=== PATIENT | female | born 1970 | race Caucasian/White ===

== ENCOUNTER 2018-07-08 11:38 | Emergency (ER) | payer OTHER ==
[~2018-07-08] VITALS: Ht 175.2 cm; Wt 90.7 kg
[~2018-07-08 11:38] MED LIST: ANAPROX DS550 MG PO; CELEXA40 MG PO; CIPROFLOXACIN500 MG PO; IBU-6600 MG PO; MOTRIN,RUFEN800 MG PO; NKHM; PERCOCET 325 MG1 TA2 PO; PERCOCET 325 MG1 TA6 PO; PRENATAL VITAMI1 TAB PO; PRENATAL1 TA3 PO; ROBAXIN750 MG PO; VICODIN1 TAB PO; VITAMIN D50000 IU PO
[2018-07-08] MEDS ORDERED: DIFLUCAN150 MG PO (13:42)
[2018-07-08] MEDS ORDERED: LEVOFLOXACIN500 MG PO (13:42)
== END 2018-07-08 15:05 | disposition home or self-care (01) ==
LOC: ED 11:38
DX: J32.9 Chronic sinusitis, unspecified (principal); J40 Bronchitis, not specified as acute or chronic; F17.200 Nicotine dependence, unspecified, uncomplicated; Z79.899 Other long term (current) drug therapy

== ENCOUNTER → 2020-03-23 | Outpatient (CLI) | payer OTHER ==
[~2020-03-23] MED LIST changes: +DIFLUCAN150 MG PO; +LEVOFLOXACIN500 MG PO
== END | disposition home or self-care (01) ==
LOC: COVID19 00:41
DX: Z20.828 Contact with and (suspected) exposure to other viral communicable diseases (principal)

== ENCOUNTER 2021-02-08 06:42 | Emergency (ER) | payer OTHER ==
[~2021-02-08] VITALS: Ht 172.7 cm; Wt 95.7 kg
[2021-02-08] MEDS ORDERED: PREDNISONE50 MG PO (08:21)
== END 2021-02-08 08:38 | disposition home or self-care (01) ==
LOC: ED 06:42
DX: T78.40XA Allergy, unspecified, initial encounter (principal); Z79.899 Other long term (current) drug therapy; Z98.890 Other specified postprocedural states; X58.XXXA Exposure to other specified factors, initial encounter

== ENCOUNTER 2022-02-23 06:12 | Emergency (ER) | payer OTHER ==
[~2022-02-23] VITALS: Ht 170.1 cm; Wt 104.3 kg
[~2022-02-23 06:12] MED LIST changes: +PREDNISONE50 MG PO
[2022-02-23] MEDS ORDERED: METHOCARBAMOL500 M1 PO (07:23)
[2022-02-23] MEDS ORDERED: NAPROXEN250 MG PO (07:23)
== END 2022-02-23 07:32 | disposition home or self-care (01) ==
LOC: ED 06:12
DX: R07.89 Other chest pain (principal)

== ENCOUNTER 2023-03-22 21:39 | Emergency (ER) | payer OTHER ==
[~2023-03-22] VITALS: Ht 170.1 cm; Wt 86.2 kg
[~2023-03-22 21:39] MED LIST changes: +METHOCARBAMOL500 M1 PO; +NAPROXEN250 MG PO
[2023-03-22] MEDS ORDERED: EFFEXOR XR75 M1 PO (21:53)
[2023-03-22 22:32] LABS: BASO # 0.1 10*3/uL (0.0-0.1); BASO % 0.4 % (0.0-1.0); EOS # 0.1 10*3/uL (0.0-0.4); EOS % 0.7 % (1.0-4.0); HEMATOCRIT 50.3 % (37.0-47.0); LYMPH # 4.7 10*3/uL (1.3-4.4); LYMPH % 31.5 % (27.0-41.0); MEAN CELL VOLUME 87.3 fl (81.0-99.0); MEAN CORPUSCULAR HGB CONC 33.2 g/dl (33.0-37.0); MEAN PLATELET VOLUME 9.4 fl (9.6-12.3); MONO % 6.7 % (3.0-9.0); NEUT # 8.9 10*3/uL (2.3-7.9); NEUT % 60.2 % (47.0-73.0); PLATELET COUNT AUTOMATED 368 10*3/uL (130-400); RED BLOOD COUNT 5.76 10*6/uL (4.10-5.10); RED CELL DISTRI WIDTH 13.3 % (0-14.5); WHITE BLOOD COUNT 14.8 10*3/uL (4.8-10.8)
[2023-03-22 22:51] LABS: ACT PARTIAL THROMBO TIME 29.2 SECONDS (20.0-32.1)
[2023-03-22 22:53] LABS: ALKALINE PHOSPHATASE 115 U/L (46-116); BUN 10 mg/dl (9-23); CHLORIDE 104 mmol/L (98-107); CPK 72 U/L (34-171); LIPASE 29 U/L (12-53); POTASSIUM 3.4 mmol/L (3.4-5.1); SGPT/ALT 12 U/L (10-49); TOTAL PROTEIN 8.1 gm/dL (6.0-8.0)
[2023-03-22 22:54] LABS: ETHYL ALCOHOL < 3.0 mg/dl (<3)
[2023-03-23 01:02] LABS: BILIRUBIN Negative (Negative); BLOOD Negative (Negative); CLARITY Clear (Clear); COLOR Yellow (Yellow); GLUCOSE Negative (Negative); KETONE Trace (Negative); LEUKO ESTERASE Negative (Negative); NITRITE Negative (Negative); SPECIFIC GRAVITY 1.025 (1.001-1.030)
[2023-03-23 01:09] LABS: URINE AMPHETAMINES Negative (1000ng/ml); URINE BARBITURATES Negative (200ng/ml); URINE BENZODIAZEPINES Negative (200ng/ml); URINE CANNABINOIDS (THC) Positive (50ng/ml); URINE COCAINE Negative (300ng/ml); URINE METHADONE Negative (300ng/ml); URINE OPIATES Negative (300ng/ml); URINE PHENCYCLIDINE Negative (25ng/ml)
[2023-03-23 01:30] LABS: BACTERIA 1+; HYALINE CAST 0-2; RBC 0-2 rbc/hpf (0-2); WBC 0-2 wbc/hpf (0-5)
[2023-03-23 01:31] LABS: MUCOUS 2+
== END 2023-03-23 11:02 | disposition home or self-care (01) ==
LOC: ED 21:39
PROVIDERS: Internal Medicine
DX: F43.10 Post-traumatic stress disorder, unspecified (principal); F32.A Depression, unspecified; F41.9 Anxiety disorder, unspecified; Z98.890 Other specified postprocedural states; X58.XXXA Exposure to other specified factors, initial encounter; Y93.89 Activity, other specified; Y92.89 Other specified places as the place of occurrence of the external cause; Y99.8 Other external cause status

== ENCOUNTER → 2023-09-04 | Outpatient (CLI) | payer OTHER ==
[~2023-09-04] MED LIST changes: +BUSPIRONE10 MG PO; +CLEOCIN HCL150 MG PO; +CLINDAMYCIN HC300 MG PO; +DALVANCE500 MG IV; +EFFEXOR XR75 M1 PO; +LAMICTAL100 MG PO; +LEVOFLOXACIN750 M2 PO; +VENLAFAXINE HYD75 M3 PO; +Vibra-Tab100 MG PO
== END | disposition home or self-care (01) ==
LOC: WOUNDCARE 01:40
PROVIDERS: ATTEND Nurse Practitioner Family
DX: T81.89XA Other complications of procedures, not elsewhere classified, initial encounter (principal); N61.1 Abscess of the breast and nipple; L03.90 Cellulitis, unspecified; E66.9 Obesity, unspecified; E43 Unspecified severe protein-calorie malnutrition; F41.9 Anxiety disorder, unspecified; F32.A Depression, unspecified; F17.210 Nicotine dependence, cigarettes, uncomplicated; Z68.32 Body mass index [BMI] 32.0-32.9, adult; Y83.8 Other surgical procedures as the cause of abnormal reaction of the patient, or of later complication, without mention of misadventure at the time of the procedure; Y92.89 Other specified places as the place of occurrence of the external cause

== ENCOUNTER → 2023-09-11 | Outpatient (CLI) | payer OTHER | END | disposition home or self-care (01) | LOC: WOUNDCARE 01:23 | PROVIDERS: ATTEND Nurse Practitioner Family | DX: T81.89XD Other complications of procedures, not elsewhere classified, subsequent encounter (principal); N61.1 Abscess of the breast and nipple; L03.90 Cellulitis, unspecified; E66.9 Obesity, unspecified; E43 Unspecified severe protein-calorie malnutrition; F17.210 Nicotine dependence, cigarettes, uncomplicated; F32.A Depression, unspecified; F41.9 Anxiety disorder, unspecified; Y83.8 Other surgical procedures as the cause of abnormal reaction of the patient, or of later complication, without mention of misadventure at the time of the procedure ==

== ENCOUNTER → 2023-09-18 | Outpatient (CLI) | payer OTHER | END | disposition home or self-care (01) | LOC: WOUNDCARE 01:48 | PROVIDERS: ATTEND Nurse Practitioner Family | DX: T81.89XD Other complications of procedures, not elsewhere classified, subsequent encounter (principal); N61.1 Abscess of the breast and nipple; L03.90 Cellulitis, unspecified; E66.9 Obesity, unspecified; E43 Unspecified severe protein-calorie malnutrition; F17.210 Nicotine dependence, cigarettes, uncomplicated; F41.9 Anxiety disorder, unspecified; F31.9 Bipolar disorder, unspecified; Z68.32 Body mass index [BMI] 32.0-32.9, adult; Y83.8 Other surgical procedures as the cause of abnormal reaction of the patient, or of later complication, without mention of misadventure at the time of the procedure ==

== ENCOUNTER → 2023-09-25 | Outpatient (CLI) | payer OTHER | LOC: WOUNDCARE 01:17 | PROVIDERS: ATTEND Nurse Practitioner Family | DX: T81.89XD Other complications of procedures, not elsewhere classified, subsequent encounter (principal); N61.1 Abscess of the breast and nipple; L03.90 Cellulitis, unspecified; E66.9 Obesity, unspecified; E43 Unspecified severe protein-calorie malnutrition; F32.A Depression, unspecified; F41.9 Anxiety disorder, unspecified; Z68.32 Body mass index [BMI] 32.0-32.9, adult; F17.210 Nicotine dependence, cigarettes, uncomplicated; Y83.8 Other surgical procedures as the cause of abnormal reaction of the patient, or of later complication, without mention of misadventure at the time of the procedure ==

== ENCOUNTER → 2023-10-02 | Outpatient (CLI) | payer OTHER | LOC: WOUNDCARE 09:06 | PROVIDERS: ATTEND Nurse Practitioner Family | DX: T81.89XD Other complications of procedures, not elsewhere classified, subsequent encounter (principal); N61.1 Abscess of the breast and nipple; L03.90 Cellulitis, unspecified; E66.9 Obesity, unspecified; E43 Unspecified severe protein-calorie malnutrition; F32.A Depression, unspecified; F41.9 Anxiety disorder, unspecified; F17.210 Nicotine dependence, cigarettes, uncomplicated; Z68.32 Body mass index [BMI] 32.0-32.9, adult; Y83.8 Other surgical procedures as the cause of abnormal reaction of the patient, or of later complication, without mention of misadventure at the time of the procedure ==